=== PATIENT | female | born 1995 | race Caucasian/White ===

== ENCOUNTER → 2017-03-24 | Outpatient (CLI) | payer BC, OTHER ==
[~2017-03-24] MED LIST: ACET-789 PO; GADOBUTROL 7.5 MMOL/7.5 ML (GADAVIST) VIAL IV ONE; IBUP200C92 PO; MULT-974 PO
== END ==
LOC: RAD 13:12
PROVIDERS: ATTEND Podiatrist
DX: M85.472 Solitary bone cyst, left ankle and foot (principal)
CPT/HCPCS: 73723

== ENCOUNTER 2017-04-16 05:30 | Outpatient (CLI) | payer OTHER ==
[~2017-04-16] VITALS: Ht 152.4 cm; Wt 47.6 kg
[~2017-04-16 05:30] MED LIST changes: -GADOBUTROL 7.5 MMOL/7.5 ML (GADAVIST) VIAL IV ONE
[2017-04-16] MEDS ORDERED: bcp PO (14:55)
== END 2017-04-16 15:01 ==
LOC: PREOP 05:30
PROVIDERS: ATTEND Podiatrist
DX: Z01.818 Encounter for other preprocedural examination (principal); M85.472 Solitary bone cyst, left ankle and foot

== ENCOUNTER 2017-04-23 08:03 | Day surgery (SDC) | payer OTHER ==
[~2017-04-23] VITALS: Ht 152.4 cm; Wt 47.6 kg
[~2017-04-23 08:03] MED LIST changes: +bcp PO
--- OUTSIDE RECORDS SUMMARY | 2017-04-23 08:06 | XMS REPORT | Continuity of Care Document ---
Author Author [facility] Organization [facility] Address Unknown Phone Unavailable Allergies Active Description Code Type Severity Reaction Onset Reported/Identified Relationship to Patient Clinical Status Yes No Known Drug Allergies [id number] Drug Allergy Unknown N/A 04/23/2013 Medications There is no data. Problems Date Dx Coded Attending Type Code Diagnosis Diagnosed By 08/05/2012 V04.89 GARDASIL (HPV ) DX 08/05/2012 V04.89 GARDASIL (HPV ) DX 08/05/2012 LORENA GEIGER, GARDENIA A V04.89 GARDASIL (HPV) DX 08/05/2012 MAYAE CALL CENTER DIRECTOR, GARDENIA A V04.89 GARDASIL (HPV) DX 09/16/2012 V03.89 MENINGOCOCCAL DX 09/16/2012 V70.3 SPORTS PHYSICAL 09/16/2012 RAJONOFREE CALL CENTER DIRECTOR, GARDENIA A V03.89 MENINGOCOCCAL DX 09/16/2012 RAJOTTE CALL CENTER DIRECTOR, GARDENIA A V70.3 SPORTS PHYSICAL 09/16/2012 RAJONOFREE CALL CENTER DIRECTOR, GARDENIA A V03.89 MENINGOCOCCAL DX 09/16/2012 RAJONOFREE CALL CENTER DIRECTOR, GARDENIA A V70.3 SPORTS PHYSICAL 03/15/2013 RAJONOFREE CALL CENTER DIRECTOR, GARDENIA A 461.9 SINUSITIS ACUTE 03/15/2013 MAYAE CALL CENTER DIRECTOR, GARDENIA A 461.9 SINUSITIS ACUTE 06/01/2013 RAJONOFREE CALL CENTER DIRECTOR, GARDENIA A 381.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 Encounters ACCT No. Visit Date/Time Discharge Status Pt. Type Provider Facility Loc./Unit Complaint [id number] 04/16/2017 05:30:00 04/16/2017 15:01:00 DIS Outpatient SIRIA WELLS DPM [facility] PREOP BONE CYST LEFT CALCANEUS [id number] 03/24/2017 13:12:00 03/24/2017 23:59:59 CLS Outpatient SIRIA WELLS DPM [facility] RAD BONE CYST L CALCANEOUS [id number] 04/27/2013 06:05:00 04/27/2013 11:30:00 DIS Outpatient [id number] 04/23/2013 12:12:00 04/23/2013 23:59:59 CLS Outpatient [id number] 10/12/2012 12:58:00 10/12/2012 23:59:59 CLS Outpatient [id number] 04/23/2017 08:03:00 ACT Outpatient SIRIA WELLS DPM [facility] SDC BONE CYST LEFT CALCANEUS [id number] 06/03/2014 11:22:00 06/03/2014 23:59:59 CLS Outpatient GARDENIA CARRILLO APRN [id number] 06/01/2013 08:51:00 06/01/2013 23:59:59 CLS Outpatient GARDENIA CARRILLO APRN [id number] 03/15/2013 13:49:00 03/15/2013 23:59:59 CLS Outpatient GARDENIA CARRILLO APRN [id number] 08/05/2012 14:08:00 08/05/2012 23:59:59 CLS Outpatient [id number] 09/16/2012 11:56:00 Document Registration [id number] 03/30/2012 13:04:04 RECURRING
[2017-04-23] MEDS ORDERED: ceFAZolin 2 GM/NS 50 ML IV ONE (08:45)
[2017-04-23] MEDS: LACTATED RINGERS 1,000 ML IV PRN ×2 (08:59→12:05)
[2017-04-23] MEDS ORDERED: ceFAZolin 2 GM/50 ML NS 50 ML IV ONE (09:00)
[2017-04-23 09:01] VITALS: BP 111/79
[2017-04-23] MEDS ORDERED: fentaNYL INJECTION 100 MCG/2 ML AMP ONE (11:21)
[2017-04-23] MEDS ORDERED: ONDANSETRON 4 MG/2 ML (SDV) Z0FRAN ONE (11:21)
[2017-04-23] MEDS ORDERED: LIDOCAINE PF 2% 5 ML (XYLOCAINE) VIAL ONE (11:21)
[2017-04-23] MEDS ORDERED: MIDAZOLAM 2 MG/2 ML (VERSED) VIAL ONE (11:21)
[2017-04-23] MEDS ORDERED: proPOfol 200 MG/20 ML (DIPRIVAN) VIAL IV ONE (11:21)
--- NOTE | 2017-04-23 12:09 | Progress Note-Pre Operative ---
Pre-Operative Progress Note H&P Reviewed The H&P was reviewed, patient examined and no changes noted. Time Seen by Provider: 12:09 Date H&P Reviewed: Apr 23, 2017 Time H&P Reviewed: 12:09 Pre-Operative Diagnosis: Bone Cyst Left Calcaneous SIRIA WELLS DPM Apr 23, 2017 12:09
[2017-04-23] MEDS ORDERED: BUPIVACAINE 0.5% 30 ML (SENSORCAINE) VIAL ONE (13:31)
--- NOTE | 2017-04-23 13:45 | Progress Note-Post Operative ---
Post-Operative Progess Note Surgeon (s)/Rolling Mill Operator (s) Surgeon SIRIA WELLS DPM Rolling Mill Operator: none Pre-Operative Diagnosis Bone Cyst Left Calcaneous Post-Operative Diagnosis same Procedure & Operative Findings Date of Procedure 04/23/17 Procedure Performed/Findings Evacuation of bone cyst left calcaneus with bone filler. Anesthesia Type GA Estimated Blood Loss Estimated blood loss (mL): none Specimens/Packing Specimens Removed none SIRIA WELLS DPM Apr 23, 2017 13:45
[2017-04-23] MEDS ORDERED: SEVOFLURANE (ULTANE) 15 ML INHAL SOLN ONE (13:53)
[2017-04-23] MEDS ORDERED: ACHD5005 PO (13:55)
[2017-04-23] MEDS ORDERED: ONDANSETRON 4 MG/2 ML (SDV) Z0FRAN IVP PRN (14:00)
[2017-04-23] MEDS ORDERED: MEPERIDINE (DEMEROL) INJ 50 MG/ML IVP PRN (14:00)
[2017-04-23] MEDS ORDERED: morphine INJ 10 MG/ML 1ML (SYR OR VIAL) IVP PRN (14:00)
[2017-04-23 14:45] VITALS: BP 111/73
[2017-04-23 15:15] VITALS: BP 101/68
[2017-04-23 15:45] VITALS: BP 114/83
[2017-04-23 15:50] VITALS: BP 114/83
--- NOTE | 2017-05-20 00:08 | OPERATIVE REPORT ---
DATE OF SERVICE: 04/23/2017 SURGEON: Tito Wells DPM. DIRECTOR COMMUNICATIONS: None. PREOPERATIVE DIAGNOSIS: Benign bone cyst of the left calcaneus. 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 PROCEDURE PERFORMED: Irrigation and debridement of bony cyst left calcaneus. ANESTHESIA: General anesthesia. HEMOSTASIS: Pneumatic thigh tourniquet at 300 mmHg. BLOOD LOSS: Minimal. MATERIALS USED: Arthrex Quickset bone graft cement and 3-0 Vicryl and 3-0 nylon. INTRAOPERATIVE INJECTABLE: 20 mL of 0.5% Marcaine plain. COMPLICATIONS: None. INDICATIONS FOR THE PROCEDURE: The patient is a 22-year-old female with a history of a bone cyst to her left calcaneus. She has chronic pain to the area of the cyst and is now requiring surgical intervention. She has signed consent prior to being taken back to the OR. DESCRIPTION OF PROCEDURE: Under mild sedation, the patient was brought into the OR and placed on the operating table in supine position. Following the administration of general anesthesia, pneumatic thigh tourniquet was placed to the left lower extremity. The left lower extremity was scrubbed, prepped and draped in aseptic manner and proper timeout was performed. Left extremity was identified as surgical site. Next, an approximately 4 cm curvilinear incision was made to the posterior aspect of the flexor retinaculum of the left lower extremity. The incision was deepened down through the subcutaneous tissue with care being taken to avoid damage to vascular structures. All bleeders were cauterized and ligated as necessary. The incision was deepened down to the level of the bone and the area of the cyst was identified. A drill hole was made using a 2.5 mm drill to drill into the area of the cyst. There was a yellow straw colored serous fluid that was drained from the area of the cyst and the jordan of the cyst were then thoroughly debrided using a curette. There was a good healthy bleeding cancellous bone in all areas of the cyst. Once it was thoroughly debrided with a curette, then, using an injectable bone filler cement, the Arthrex Quickset calcium phosphate was injected into the area of the cyst and the cyst was slowly filled with a gelatinous type fluid. This was allowed approximately 5 minutes to dry and any remaining fluid was flushed from the area of the wound. The deep tissues were then reapproximated and closed using 3-0 Vicryl, subcutaneous tissues reapproximated with 3-0 Vicryl and skin was reapproximated with wound edges well everted using 3-0 nylon. 20 mL 0.5% Marcaine plain were injected in the area of the foot and the foot was dressed with a dry sterile dressing consisting of 4 x 4s, Webril and Michael wrap. The patient tolerated the procedure and anesthesia well. She was transferred from the OR to the recovery with vital signs stable and neurovascular status intact to the left lower extremity. The patient tolerated the procedure and anesthesia well. She was transferred from OR to recovery with vital signs stable and vascular status intact to the left lower extremity. The cyst was approximately 2 cm in diameter. After debriding, the cyst was approximately 2 cm in diameter and this was filled with the bone cement. Job ID: [id number] DocumentID: [id number] Dictated Date: 05/19/2017 14:05:24 Industrial Millwright Date: 05/20/2017 00:07:40 Dictated By: TITO WELLS DPM
== END 2017-04-23 15:50 | disposition home or self-care (01) ==
LOC: SDC 08:03
PROVIDERS: ATTEND Podiatrist
DX: M85.672 Other cyst of bone, left ankle and foot (principal); Z11.2 Encounter for screening for other bacterial diseases
CPT/HCPCS: 84703; 87081